=== PATIENT | male | born 1940 | race Caucasian/White ===

== ENCOUNTER → 2018-10-23 | Outpatient (CLI) | payer MEDICARE ==
[2018-10-23 13:19] LABS: HEMATOCRIT 42.8 % (42.0-52.0); HEMOGLOBIN 14.1 g/dl (13.5-18.0); MEAN CELL VOLUME 92 fl (80.0-100.0); MEAN CORPUSCULAR HEMOGLOBIN 30 pg (27.0-31.0); MEAN CORPUSCULAR HGB CONC 33 g/dl (33.0-37.0); MEAN PLATELET VOLUME 10.5 fl (7.4-10.4); PLATELET COUNT 245 K/mm3 (130-400); RED BLOOD COUNT 4.68 M/mm3 (4.20-5.60); REDCELL DISTRIBUTION WIDTH-CV 13.6 % (11.5-14.5)
[2018-10-23 13:51] LABS: ERYTHROCYTE SEDIMENTATION RATE 6 mm/hr (0-30)
== END ==
LOC: COL.LAB 12:42
PROVIDERS: Orthopaedic Surgery
DX: M25.562 Pain in left knee (principal); Z96.652 Presence of left artificial knee joint

== ENCOUNTER 2018-11-16 09:42 | Inpatient (IN) | payer MEDICARE ==
[~2018-11-16] VITALS: Ht 165.1 cm; Wt 81.9 kg
[2018-12-13] VITALS (11 sets, daily range): BP systolic 118–181; BP diastolic 55–91; PULSE 61–97; TEMP 97.8–99
[2018-12-13] MEDS ORDERED: LOTENSIN 1010 MG/TAB PO (08:24)
[2018-12-13] MEDS ORDERED: PRIL40 PO (08:24)
[2018-12-13] MEDS ORDERED: ZOCOR 20MG20 MG PO (08:27)
[2018-12-13] MEDS ORDERED: SYNTHROID0.175 MG PO (08:29)
[2018-12-13] MEDS ORDERED: SINGULAIR 110 MG/TAB PO (08:31)
[2018-12-13] MEDS ORDERED: CARAFATE 1GM1 G PO (08:32)
--- NOTE | 2018-12-13 09:06 | NUR ---
PATIENT TO SURGERY PER BED WITH BIB, REPORT CALLED TO LÓPEZ VERGARA MANAGER SCHEDULING
--- NOTE | 2018-12-13 14:48 | NUR ---
PT TO ROOM 328 PER BED,WITH REPORT FROM KAMERON DORADO PACU @1034. PT IS DROWSEY BUT AROUSEABLE. LUNGS CLEAR, LEFT TOES BLUISH AND DUSKY COOL TO TOUCH, CALLED DR DOWNEY TO REPORT FINDINGS AND AND [facility] BOWENS RETURNED TO FLOOR AND EXAMINED PT. LOOSENED NEFTALI WRAPS AND DOPPLER FOUND PULSES. REAPPLIED NEFTALI WRAP AND REASSURED FAMILY AND PATIENT. COATES TO DD, IV TO PUMP.
--- NOTE | 2018-12-13 14:51 | NUR ---
KALIN met with patient and family about discharge planning. Patient lives at home with his and plans to return there upon discharge. Patient's PCP is Dr Vargas and he obtains prescriptions through [facility] in [place]. Patient uses a walker for ambulation but no other DME is reported. Patient does not use any home health services currently. Patient's reported that patient will need IV antibiotics when he is discharged and they would like to administer those at home. KALIN reported that she can help arrange home health and send orders to an infusion company. KALIN will follow up with patient tomorrow with home health and infusion company options. Patient's would also like KALIN to contact her with those options. [place] [phone]
[2018-12-14] VITALS (7 sets, daily range): BP systolic 122–148; BP diastolic 48–66; PULSE 75–95; TEMP 98.4–100.1
--- NOTE | 2018-12-14 05:00 | NUR ---
HAS RESTED OFF AND ON THIS SHIFT. DENIES N/V. PAIN IS TOLERABLE BUT WILL CALL IF NEEDED. KNEE IMMOBLIZER TO LEFT KNEE-ELEVATED ON PILLOWS. NEFTALI BANDAGE WITH DDRESSING UNDERNEATH. C/D/I. FRESH ICE PACK.
[2018-12-14 06:10] LABS: BASO % 0.5 % (0.0-2.0); EOS # 0.2 (0.0-0.7); EOS % 1.7 % (0-4.0); GRAN # 7.2 (1.4-6.5); GRAN % 81.6 % (42.2-75.2); LYMPH # 0.7 (1.2-3.4); LYMPH % 7.5 % (20.0-51.0); MEAN CELL VOLUME 92 fl (80.0-100.0); MEAN CORPUSCULAR HGB CONC 33 g/dl (33.0-37.0); MEAN PLATELET VOLUME 10.3 fl (7.4-10.4); MONO # 0.7 (0.1-0.6); MONO % 8.4 % (1.7-9.3); PLATELET COUNT 180 K/mm3 (130-400); RED BLOOD COUNT 3.19 M/mm3 (4.20-5.60); REDCELL DISTRIBUTION WIDTH-CV 13.2 % (11.5-14.5)
[2018-12-14 06:12] LABS: HEMATOCRIT 29.3 % (42.0-52.0); HEMOGLOBIN 9.6 g/dl (13.5-18.0); MEAN CORPUSCULAR HEMOGLOBIN 30 pg (27.0-31.0)
[2018-12-14 06:21] LABS: ALBUMIN 2.8 gm/dL (3.5-5.0); BILIRUBIN,TOTAL 0.2 mg/dL (0.0-1.0); CALCIUM 7.7 mg/dL (8.4-10.2); CREATININE, serum 1.04 (0.66-1.25); TOTAL PROTEIN 5.3 gm/dL (6.4-8.2)
[2018-12-14] MEDS ORDERED: ROXICODONE 55 MG/TAB PO (07:48)
[2018-12-14] MEDS ORDERED: ASPI325T6 PO (07:48)
[2018-12-14] MEDS ORDERED: NORCO 325 MG-7.1 TAB PO (07:48)
--- NOTE | 2018-12-14 18:05 | NUR ---
Pt laying in bed when nurse entered room. Pt remained in bbed throughout my shift. Vitals signs assessed and charted. Reported off to primary nurse AVE Diaz.
--- NOTE | 2018-12-14 21:00 | NUR ---
Patient report received from AVE Diaz at bedside during shift report. Upon assessment at this time patient is resting comfortably in bed. Denies significant pain, rating it at 1/10, but requests pain medication before bed, prn Roxicodone given. Denies n/v. Technol brace in place at this time, patient reports he likes to leave it in place. Patient refuses cryocuff, ice bag refilled and placed beside knee. No other needs reported at this time.
[2018-12-15 00:11] VITALS: BP 132/53; PULSE 91; TEMP 99.6
[2018-12-15 04:10] VITALS: BP 127/52; PULSE 86; TEMP 98.3
--- NOTE | 2018-12-15 06:40 | NUR ---
awake resting in bed, bedside shift report received from AVE Jaurez
--- NOTE | 2018-12-15 07:01 | NUR ---
Patient report given to AVE Ma at bedside. Patient resting comfortably in bed, no needs reported.
[2018-12-15 07:28] VITALS: BP 128/53; PULSE 87; TEMP 98.8
--- NOTE | 2018-12-15 08:00 | NUR ---
in bed and appears to be sleeping, resp quiet and easy
--- NOTE | 2018-12-15 08:32 | NUR ---
occupational therapy in to work with patient and assist with taking a shower, bulky raad wrap dressing removed, incision with luanne intact, cleaned with betadine and aqucel dressing placed, denies needs at this time
--- NOTE | 2018-12-15 09:15 | NUR ---
c/o pain to left knee after shower, medicated with hydrocodone 7.5mg 2 tabs, ambulated out to [place] with physical therapy for group exercises
--- NOTE | 2018-12-15 09:33 | NUR ---
therapist called nurse to assess the patient's knee, has bleeding through aquacel, covered with 4x4s and ABD dressing and wrapped with raad wrap,
--- NOTE | 2018-12-15 10:15 | NUR ---
back to room after therapy, aquacel removed and new one placed, covered with gauze and ABD and then wrapped with raad wrap, Dr Ng called to check on patient and given information about drainage and dressing,
--- NOTE | 2018-12-15 11:18 | NUR ---
Initial visit; Patient thanked Booking Prizer for looking in on him and offering God's blessings.
[2018-12-15 12:00] VITALS: BP 159/69; PULSE 101; TEMP 98.2
--- NOTE | 2018-12-15 13:05 | NUR ---
ambulated out to [place] with physical therapy for group exercises
--- NOTE | 2018-12-15 13:15 | NUR ---
had physical therapy and tolerated well, c/o pain now 01/15, medicated with oxycodone 10mg po
--- NOTE | 2018-12-15 13:18 | NUR ---
SW met with patient about home health choice and IV infusion company choice. Patient chose [facility] and requested SW contact his daughter, Carlos Enrique ([phone]), aboout infusion company choice. SW contacted Radha with choices. Radha chose [facility] to provide the IV antibiotics. SW contacted both [facility] and [facility] and faxed a referral.
--- NOTE | 2018-12-15 14:00 | NUR ---
resting in chair, denies needs
--- NOTE | 2018-12-15 15:00 | NUR ---
leg wrapped with raad wrap from toes to groin
[2018-12-15 16:05] VITALS: BP 136/53; PULSE 90; TEMP 98.3
--- NOTE | 2018-12-15 17:32 | NUR ---
Pt sitting in recliner chair when nurse arrived. Educated pt on wearing left knee brace when ambulating per doctor order. Vials assessed. Left call light within reach.
--- NOTE | 2018-12-15 17:52 | NUR ---
Reported off to AVE Monterroso
--- NOTE | 2018-12-15 18:31 | NUR ---
bedside shift report given to AVE Mena
[2018-12-15 20:00] VITALS: BP 156/65; PULSE 91; TEMP 98.9
--- NOTE | 2018-12-15 20:00 | NUR ---
REPORT RECEIVED. ASSUMED CARE FOR SUBASSEMBLIES WIRER. ASSESSMENT COMPLETE. VS STABLE. CURRENTLY SITTING UP IN CHAIR WATCHING TV. DENIES PAINN. N/V. AQUACELL DRESSING C/D/I. NEFTALI BANDAGE TO LEFT LEG/PETEY HOSE TO RIGHT. DENIES NEEDS. PLAN OF CARE DISCUSSED IMMOBOLIZER WHEN AMBULATING. VERBALIZES UNDERSTANDING. CALL LIGHT WITHIN REACH. BED IN LOW POSITION. WHEELS LOCKED. WILL MONITOR.
--- NOTE | 2018-12-15 22:00 | NUR ---
IN BED RESTING. REFUSING IMMOBOLIZER. TEACHING DONE ON IMPORTANCE OF WEARING BUT STILL REFUSING. DOES HAVE LEFT EXTREMITY ELEVATED ON PILLOW. FRESH ICE PACK APPLIED. WILL MONITOR.
[2018-12-16 02:00] VITALS: BP 131/51; PULSE 81; TEMP 98.4
--- NOTE | 2018-12-16 02:00 | NUR ---
AWAKE LAYING IN BED. ATTEMPTED TO HELP PUT IMMOBOLIZER ON BUT STILL REFUSES. DENIES NEEDS AT THIS TIME. LEFT LOWER EXTREMITY ELEVATED ON PILLOWS. FRESH ICE APPLIED. WILL MONITOR.
[2018-12-16 04:02] VITALS: BP 120/53; PULSE 79; TEMP 98.3
--- NOTE | 2018-12-16 04:33 | NUR ---
HAS SLEPT MOST OF THIS SHIFT. C/O PAIN TO LEFT LOWER EXTREMITY-MOSTLY THIGH AREA-RATING 6/10. SELIN GIVEN PER DR ORDER. LEFT LEG ELEVATED ON PILLOWS. ICE APPLIED. NEFTALI BANDAGE/AQUACELL C/D/I. PICC LINE FLUSHED AND VANC STARTED WITHOUT DIFFICULTY. VS HAVE REMAINED STABLE. WILL MONITOR.
[2018-12-16 07:46] VITALS: BP 143/51; PULSE 83; TEMP 98.8
[2018-12-16 07:47] LABS: BASO % 0.5 % (0.0-2.0); EOS # 0.3 (0.0-0.7); EOS % 4.9 % (0-4.0); GRAN # 4.7 (1.4-6.5); GRAN % 72.3 % (42.2-75.2); LYMPH # 0.8 (1.2-3.4); LYMPH % 12.9 % (20.0-51.0); MEAN CELL VOLUME 92 fl (80.0-100.0); MEAN CORPUSCULAR HGB CONC 32 g/dl (33.0-37.0); MONO # 0.6 (0.1-0.6); MONO % 8.6 % (1.7-9.3); PLATELET COUNT 179 K/mm3 (130-400); RED BLOOD COUNT 2.78 M/mm3 (4.20-5.60); REDCELL DISTRIBUTION WIDTH-CV 13.2 % (11.5-14.5)
[2018-12-16 07:48] LABS: HEMATOCRIT 25.5 % (42.0-52.0); HEMOGLOBIN 8.2 g/dl (13.5-18.0); MEAN CORPUSCULAR HEMOGLOBIN 29 pg (27.0-31.0)
--- NOTE | 2018-12-16 08:46 | NUR ---
Asha contacted [facility] and they will not be able to provide IV services to the patient; They are out of network. KALIN contacted Radha, to advise her. KALIN will continue to send referrals.
--- NOTE | 2018-12-16 10:59 | NUR ---
Spoke with Shalini from [facility] and the patient has been accepted for IV services. Shalini informed KALIN that benefits will not be checked until Tuesday. Shalini quoted $60.55 a day for supplies and medications. KALIN faxed discharge orders to Shalini and the nurse is to fax script to [phone] once the dosage is set. KALIN contacted Radha, the patient's daughter, to inform her of the quoted amount in case insurance does not cover the supplies and medication. Radha was agreeable. KALIN faxed script for the patient's DME to [facility]. Godwin from [facility] confirmed they did receive the fax. KALIN contacted Radha to inform her that [facility] received the script. Radha reported she will cotton picking machine operator the equipment. KALIN faxed discharge orders to [facility]. There are no additional needs at this time.
--- NOTE | 2018-12-16 11:30 | NUR ---
Patient is sitting up in the chair. Explained the discharge plan. Explained that we are going to do his blood draw to check his vanc levels and than give the evening dose and send him home. Patient verbalized understanding. overhead worker has been working on setting up his antibiotics. No other changes at this time. Call light within reach.
[2018-12-16 12:18] VITALS: BP 146/65; PULSE 81; TEMP 98.3
[2018-12-16] MEDS ORDERED: VANCO 1 GR1 GM/250 M IV (17:40)
--- NOTE | 2018-12-16 18:00 | NUR ---
Patient is discharging home. Explained how to keep his PICC line dressing clean and dry when showering. Sent aquacel dressing home to change this week. Explained to wash hands very well before changing dressing. Explained the plan for antibiotics and supplies to be sent to his home. No questions verbalized at this time. Copies of discharge instructions sent with patient. All belongings packed up and sent with patient. He did not want to take the cyrocuff because he already has one at home. Explained he was probably already charged for it and he should take it but he refused to take it with him. Explained he needs a follow up appointment with infectious disease doctor and that he will have to call Tuesday for an appointment. Reminded him to wear his brace at home. Patient walked out via wheel chair by Clara HOLGUIN.
== END 2018-12-16 18:00 | disposition home or self-care (01) | DRG 941 ==
LOC: JCC 12-13 05:36
PROVIDERS: Internal Medicine Infectious Disease; ADMIT Orthopaedic Surgery
PROC: 0LBR0ZZ Excision of Left Knee Tendon, Open Approach (ICD-10-PCS; principal; 2018-12-13 11:25)
PROC: 0SBD0ZZ Excision of Left Knee Joint, Open Approach (ICD-10-PCS; principal; 2018-12-13 11:25)
PROC: 0SRD0EZ Replacement of Left Knee Joint with Articulating Spacer, Open Approach (ICD-10-PCS; principal; 2018-12-13 11:25)
PROC: 0SPD0JZ Removal of Synthetic Substitute from Left Knee Joint, Open Approach (ICD-10-PCS; principal; 2018-12-13 11:25)
DX: T84.54XD Infection and inflammatory reaction due to internal left knee prosthesis, subsequent encounter (principal); I10 Essential (primary) hypertension; Z85.46 Personal history of malignant neoplasm of prostate; Z85.51 Personal history of malignant neoplasm of bladder; K21.9 Gastro-esophageal reflux disease without esophagitis; E03.9 Hypothyroidism, unspecified
CPT/HCPCS: A4314; C1751; C1776; J0690; J1170; J1885; J2250; J2704; J3010; J3260; J3370; J7050; J7120; L1832

== ENCOUNTER → 2019-07-12 | Outpatient (CLI) | payer MEDICARE ==
[~2019-07-12] MED LIST: ASPI325T6 PO; CARAFATE 1GM1 G PO; LOTENSIN 1010 MG/TAB PO; MONODOX100 PO; NORCO 325 MG-7.1 TAB PO; PRIL40 PO; ROXICODONE 55 MG/TAB PO; SINGULAIR 110 MG/TAB PO; SYNTHROID0.175 MG PO; VANCO 1 GR1 GM/250 M IV; ZOCOR 20MG20 MG PO
== END ==
LOC: COL.RAD 14:52
DX: M25.511 Pain in right shoulder (principal); G89.29 Other chronic pain
CPT/HCPCS: J3301; Q9967